=== PATIENT | male | born 1995 | race African-American/Black ===

== ENCOUNTER 2017-12-12 19:22 | Emergency (ER) | payer BC, OTHER ==
[~2017-12-12] VITALS: Ht 188 cm; Wt 115.4 kg
[2017-12-12 19:32] VITALS: Ht 188 cm; Wt 115.4 kg
[2017-12-12] MEDS ORDERED: ALBUT/IPRATROP 3MG/0.5MG NEB 3 ML VIAL INH STA ×2 (19:51→21:22)
[2017-12-12] MEDS ORDERED: ACETAMINOPHEN 500 MG TAB PO STA (19:51)
--- NOTE | 2017-12-12 20:15 | DIAGNOSTIC IMAGING REPORT ---
CHEST ONE VIEW PORTABLE CLINICAL HISTORY: 22 years-old Male presenting with fever, SOB. TECHNIQUE: Portable upright AP view of the chest was obtained. COMPARISON: None. FINDINGS: Cardiomediastinal silhouette normal. Perihilar vascular prominence. Mild bronchial wall thickening. No focal opacity. No large effusion or pneumothorax. Osseous structures normal. Upper abdomen normal. IMPRESSION: 1. No focal infiltrate to suggest pneumonia. Suggestion of mild bronchial wall thickening and perihilar vascular prominence, which could suggest reactive airways or viral bronchiolitis. Electronically signed by: Orlando Cohen M.D. 12/12/2017 8:14 PM Dictated Date/Time: 12/12/2017 8:13 PM
[2017-12-12 20:56] LABS: INFLUENZA B ANTIGEN Neg for Influ B (NEG)
[2017-12-12] MEDS ORDERED: ALBUTEROL HFA 8 GM INHALER INH ONE (21:30)
[2017-12-12] MEDS ORDERED: AZITHROMYCIN 250 MG TAB PO ONE (21:30)
[2017-12-12 21:50] VITALS: BP 134/82; PULSE 118; TEMP 37.4; O2SAT 96
[2017-12-12] MEDS ORDERED: PRED50TA PO (21:58)
[2017-12-12] MEDS ORDERED: AZIT-60 PO (21:58)
--- NOTE | 2017-12-12 22:58 | EMERGENCY ROOM VISIT NOTE ---
History Report prepared by Ja: Laith Aguilar Under the Supervision of: Dr. Vahe Patel M.D. First contact with patient: 19:38 Chief Complaint: RESPIRATORY PROBLEMS Stated Complaint: TROUBLE BREATHING/ALLERGIES TO POLLEN History of Present Illness The patient is a 22 year old male who presents to the Emergency Room with complaints of constant shortness of breath beginning earlier today. The patient states he has a history of asthma. He reports he has not had an attack in 12 years, and he does not use inhalers or take medication anymore. The patient notes he has used a nebulizer when he was younger. He states his symptoms started when two days ago, and he thought it was just from the pollen. The patient reports he was full of mucus yesterday, and he developed his shortness of breath when he woke up today. He notes he tried using Vicks, but it did not help his symptoms. Pt denies LOC, headache, chills, diaphoresis, visual changes , neck pain, chest pain, nausea, vomiting, abdominal pain, back pain, melena, hematochezia, urinary symptoms, numbness, weakness, lymphadenopathy, rash, being around anyone sick, joint swelling, or other complaints. 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 The patient denies fevers, but his temperature was 102.4 degrees in the room. Source of History: patient Onset: earlier today Quality: other (SOB) Timing: constant Modifying Factors (Worsening): other (pollen) Note: Associated symptoms: mucus Review of Systems See HPI for pertinent positives and negatives. A total of ten systems were reviewed and were otherwise negative. Past Medical & Surgical Medical Problems: (1) Asthma Family History Patient reports no known family medical history. Social History Smoking Status: Never Smoker Smokeless Tobacco Use: No Alcohol Use: occasionally Housing Status: lives alone Occupation Status: [employer] student Current/Historical Medications Scheduled Azithromycin (Zithromax), 250 MG PO DAILY Prednisone (Prednisone), 50 MG PO DAILY Allergies Coded Allergies: No Known Allergies (Unverified , 04/28/14) Physical Exam Vital Signs Date Time Temp Pulse Resp B/P (MAP) Pulse Ox O2 Delivery O2 Flow Rate FiO2 12/12/17 21:50 37.4 118 18 134/82 96 Room Air 12/12/17 20:48 38.8 12/12/17 19:32 38.3 117 22 144/71 91 Room Air Physical Exam GENERAL: Awake, alert, mildly ill appearing, no distress HEAD: Normocephalic, atraumatic. No edema. EYES: Normal conjunctiva. Sclera non-icteric. EARS: Right TM normal. Left TM normal. NOSE: Mild congestion. OROPHARYNX: Lips, tongue, and mucosa unremarkable. No erythema or exudate. NECK: Supple. No nuchal rigidity. FROM. No adenopathy. Negative jolt accentuation test. RESPIRATORY: Bilateral expiratory wheezing at the bases. No rales or rhonchi. Normal respiratory effort. CARDIAC: Tachycardic rate. Normal rhythm. No murmurs. No rubs. GI: Soft, non distended. No tenderness to palpation. NEURO: Normal sensorium. Normal speech. SKIN: No rash or jaundice noted. Medical Decision & Procedures ER Provider Diagnostic Interpretation: X-ray: Per my interpretation, radiologist review. CHEST ONE VIEW PORTABLE CLINICAL HISTORY: 22 years-old Male presenting with fever, SOB. TECHNIQUE: Portable upright AP view of the chest was obtained. COMPARISON: None. FINDINGS: Cardiomediastinal silhouette normal. Perihilar vascular prominence. Mild bronchial wall thickening. No focal opacity. No large effusion or pneumothorax. Osseous structures normal. Upper abdomen normal. IMPRESSION: 1. No focal infiltrate to suggest pneumonia. Suggestion of mild bronchial wall thickening and perihilar vascular prominence, which could suggest reactive airways or viral bronchiolitis. Electronically signed by: Orlando Cohen M.D. 12/12/2017 8:14 PM Dictated Date/Time: 12/12/2017 8:13 PM Laboratory Results Test 12/12/17 20:10 Influenza Type A Antigen Neg for Influ A (NEG) Influenza Type B Antigen Neg for Influ B (NEG) Laboratory results reviewed by sc Medications Administered Medications (Trade) Dose Ordered Sig/Leslie Route Start Time Stop Time Status Last Admin Dose Admin Albuterol/ Ipratropium (Duoneb) 3 ml NOW STAT INH 12/12/17 19:51 12/12/17 19:53 DC 12/12/17 20:16 3 ML Acetaminophen (Tylenol Tab) 1,000 mg NOW STAT PO 12/12/17 19:51 12/12/17 19:53 DC 12/12/17 20:16 1,000 MG Prednisone (PredniSONE TAB) 60 mg NOW STAT PO 12/12/17 21:22 12/12/17 21:24 DC 12/12/17 21:33 60 MG Albuterol/ Ipratropium (Duoneb) 3 ml NOW STAT INH 12/12/17 21:22 12/12/17 21:24 DC 12/12/17 21:33 3 ML Azithromycin (Zithromax Tab) 500 mg NOW ONCE PO 12/12/17 21:30 12/12/17 21:31 DC 12/12/17 21:33 500 MG Albuterol (Ventolin Hfa Inhaler) 2 puffs NOW ONCE INH 12/12/17 21:30 12/12/17 21:31 DC 12/12/17 21:33 2 PUFFS ED Course 1947: The patient was evaluated in room C07. A complete history and physical exam was performed. 1950: Ordered Acetaminophen 1000mg PO, Duoneb 3ml INH 2110: I reevaluated the patient and discussed his current test results. He is feeling better. 2121: Ordered Duoneb 3ml INH, Prednisone 60mg PO 2129: Ordered Albuterol 2 puffs INH, Azithromycin 500mg PO 2158: I reevaluated the patient. Discussed results and discharge instructions: he verbalized understanding and agreement. The patient is ready for discharge. Medical Decision Triage Nursing notes reviewed and agree them. The patient's history was concerning for reactive airway disease and shortness of breath. Differential diagnosis: Etiologies such as pneumonia, COPD, reactive airway disease, CHF, cardiac ischemia, pulmonary embolism, pneumothorax, musculoskeletal, infections, gastrointestinal, as well as others were entertained. Physical examination: As above. The patient had some mild tachycardia and wheezing. He was febrile. ER treatment provided: DuoNeb 2 Oral Tylenol Oral prednisone Oral Zithromax On reassessment the patient felt much better. His O2 saturations were in the mid 90s. He subjectively felt significantly better. Fever was gone. Diagnostic interpretation by me: The labs revealed a negative flu test. Imaging studies: Chest x-ray as above. Flu testing was negative. The patient's chest x-ray showed some congestive change but no clear pneumonia. The patient will be treated with an albuterol MDI, prednisone, and Zithromax under the circumstances. He is feeling much better. He will follow closely as an outpatient. If he worsens in any way he will be back. I gave my usual and customary discussion regarding this issue. By the evaluation outlined above other emergent etiologies such as those listed in the differential, as well as others, were deemed relatively unlikely. The patient was educated about the findings as listed above. All questions were answered and the patient was pleased with the treatment. Return instructions were outlined and the patient was discharged in stable condition. The patient was referred to [facility] for follow-up for a recheck of the current condition. Medication Reconcilliation Current Medication List: was personally reviewed by me Blood Pressure Screening Patient's blood pressure: Elevated blood pressure Blood pressure disposition: Elevated BP felt to be situational Impression Primary Impression: Reactive airway disease Additional Impression: Fever Scribe Attestation The scribe's documentation has been prepared under my direction and personally reviewed by me in its entirety. I confirm that the note above accurately reflects all work, treatment, procedures, and medical decision making performed by me. Departure Information Dispostion Home / Self-Care Prescriptions Azithromycin (ZITHROMAX) 250 Mg Tab 250 MG PO DAILY, #4 TAB Prov: Vahe Patel MD 12/12/17 Prednisone (Prednisone) 50 Mg Tab 50 MG PO DAILY for 4 Days, #4 TAB Prov: Vahe Patel MD 12/12/17 Referrals Hiram Preciado D.OJasmyn (PCP) Forms HOME CARE DOCUMENTATION FORM, IMPORTANT VISIT INFORMATION, WORK / SCHOOL INSTRUCTIONS Patient Instructions My [facility] Additional Instructions Albuterol Inhaler: Take 2 puffs four times daily for five days, then as needed. Prednisone 50mg: Once daily until the prescription is finished. It is best to take this earlier in the day as some patients note occasional difficulty falling asleep when taken in the late evening. Azithromycin(Zithromax) 250mg: Take one a day for 4 additional days. All antibiotics can cause diarrhea. If this occurs and you feel worse or it does not resolve in 1-2 days follow up with your doctor or return to the Emergency Department as this could be signs of serious underlying problems. Any medication can cause an allergic reaction, stop the pills immediately and return to the ER for rash, hives, breathing difficulties, or swelling. Acetaminophen(Tylenol) may be used for fever or pain. Use 1000mg every six hours as needed. Avoid using more than 4000mg in a 24 hour period. (AND/OR) Ibuprofen(Motrin, Advil) may be used for fever or pain. Use 600mg every six hours as needed. Take with food. Avoid using more than 2400mg in a 24 hour period. Do not use 2400mg per day for more than three consecutive days without physician direction. Prolonged inappropriate use can lead to stomach upset or ulcers. Rest and drink plenty of fluids. Avoid smoke/smoking, fumes, dust, or any triggers in the past that may have affected your breathing. Continue current medications. Return to the ER for chest pain, difficulty breathing, fevers, vomiting, worsening of your condition, or as needed. Follow up with [facility] this week for a recheck of your current condition. Problem Qualifiers
== END 2017-12-12 22:17 | disposition home or self-care (01) ==
LOC: C.EDB 19:23 → C.EDC 22:17
DX: J45.909 Unspecified asthma, uncomplicated (principal); R50.9 Fever, unspecified